=== PATIENT | male | born 1945 | race Caucasian/White ===

== ENCOUNTER 2019-03-13 09:04 | Inpatient (IN) | payer MEDICARE ==
[~2019-03-13] VITALS: Ht 175.3 cm; Wt 89.5 kg
[2019-03-13] MEDS ORDERED: ketorolac tromethamine 15mg/ml inj. IV ONE (09:45)
[2019-03-13] MEDS ORDERED: clindamycin 600mg/D5W 50ml 50 ML IV ONE (09:45)
[2019-03-13] MEDS ORDERED: tetanus & diphtheria toxoid (Td) vaccine 0.5ml IMVAC ONE (09:45)
[2019-03-13 09:59] LABS: BASOPHILS % (AUTO) 0.2 % (0-1); EOSINOPHILS # (AUTO) 0.2 X10'3 (0-0.9); EOSINOPHILS % (AUTO) 1.4 % (0-6); HEMATOCRIT 46.3 % (42.0-52.0); HEMOGLOBIN 15.6 g/dl (14.0-17.9); LYMPHOCYTES # (AUTO) 0.9 X10'3 (1.1-4.8); LYMPHOCYTES % (AUTO) 6.8 % (21-51); MEAN CORPUSCULAR HEMOGLOBIN 30.2 PG (27.0-31.0); MEAN CORPUSCULAR HGB CONC 33.7 g/dL (33.0-36.5); MEAN CORPUSCULAR VOLUME 89.7 FL (78-98); MEAN PLATELET VOLUME 10.5 FL (7.4-10.4); MONOCYTES # (AUTO) 1.1 X10'3 (0-0.9); MONOCYTES % (AUTO) 8.3 % (2-12); NEUTROPHILS # (AUTO) 11.2 X10'3 (1.8-7.7); NEUTROPHILS % (AUTO) 83.3 % (42-75); PLATELET COUNT 143 X10'3 (140-440); RED BLOOD COUNT 5.16 X10'6 (4.70-6.10); RED CELL DISTRIBUTION WIDTH 13.9 % (11.5-14.5); WHITE BLOOD COUNT 13.4 X10'3 (4.5-11.0)
[2019-03-13 10:07] LABS: ALANINE AMINOTRANSFERASE 47 U/L (12-78); ALKALINE PHOSPHATASE 57 IU/L (46-116); ANION GAP 11 (8-16); ASPARTATE AMINO TRANSFERASE 22 U/L (10-37); BILIRUBIN,TOTAL 1.3 MG/DL (0.1-1.0); BLOOD UREA NITROGEN 16 MG/DL (7-18); BUN/CREATININE RATIO 14.8 (5.4-32.0); C-REACTIVE PROTEIN 15.16 MG/DL (0.0-0.5); CHLORIDE 103 MMOL/L (99-107); CREATININE 1.08 MG/DL (0.60-1.10); GLUCOSE 123 MG/DL (70-104); POTASSIUM 3.8 MMOL/L (3.5-5.1); SODIUM 139 MMOL/L (135-145); TOTAL CARBON DIOXIDE 25.4 MMOL/L (24-32); TOTAL PROTEIN 8.2 G/DL (6.4-8.2); eGFR 67 ML/MIN
[2019-03-13 10:12] LABS: CALCIUM 9.3 MG/DL (8.5-10.1)
[2019-03-13] MEDS ORDERED: TETanus/Pertussis (Acell)/Diphther VAC/PF (Tdap-Adult) 0.5ml syringe IMVAC ONE (10:15)
[2019-03-13 10:18] LABS: LARGE PLATELETS FEW; PLATELET ESTIMATE NORMAL
[2019-03-13] MEDS ORDERED: ampicillin/sulbac 3gm/NS 100ml 100 ML IV ONE (10:30)
[2019-03-13] MEDS ORDERED: morphine 2 MG/ML inj. syringe IV PRN ×2 (10:45)
[2019-03-13] MEDS ORDERED: ondansetron/PF 4mg/2ml inj IV PRN (10:45)
[2019-03-13] MEDS ORDERED: mag hydrox/Alum hydrox/simeth 30ml oral suspension PO PRN (10:45)
[2019-03-13] MEDS ORDERED: magnesium hydroxide 30ml (MOM) UD suspension PO PRN (10:45)
[2019-03-13] MEDS ORDERED: acetaminophen 325mg tablet PO PRN ×2 (10:45)
[2019-03-13] MEDS ORDERED: HYDROcodone/acetaminophen 5mg/325mg tablet PO PRN (10:45)
--- NOTE | 2019-03-13 11:30 | NUR ---
PATIENT IS GOING TO BE ADMITTED INPATIENT FOR ANTIBIOTIC THERAPY. PATIENT WAS NOT PREPARED TO BE ADMITTED AND NEEDS TO GO HOME TO SECURE HIS HOUSE AND PETS. IV SALINE LOCK REMAINS INTACT AND SECURED WITH [employer] DRESSING. LEFT FROM ER, AMBULATORY IN GOOD CONDITION AND WILL BE RETURNING TO THE ER AFTER HE TAKES CARE OF MATTERS AT HOME.
--- NOTE | 2019-03-13 14:24 | NUR ---
PT CAME TO THE FLOOR AT 1420. HE IS IN HIS STREET CLOTHES AND HAS NOT BROUGHT HIS MED LIST WITH HIM.
--- NOTE | 2019-03-13 14:32 | NUR ---
PT STATES HE TAKE AMLODIPINE BUT HE DOES NOT KNOW HOW MUCH. HE TAKES ANOTHER MED ALSO BUT DOES NOT KNOW THE NAME. WILL NOTIFY HOSPITALIST
--- NOTE | 2019-03-13 14:45 | NUR ---
PAGED HOSPITALIST WITH INFORMATION REGARDING PT'S HOME MEDS
--- NOTE | 2019-03-13 14:55 | NUR ---
TOOK PHOTO OF PT'S RIGHT ARM AND LABELED IT
[2019-03-13 14:57] VITALS: BP 136/73
[2019-03-13 18:00] VITALS: BP 131/69
[2019-03-13] MEDS: ampicillin/sulbac 3gm/NS 100ml 100 ML IV SCH (19:57)
[2019-03-14] VITALS: BP 111/71
[2019-03-14] MEDS: ampicillin/sulbac 3gm/NS 100ml 100 ML IV SCH ×2 (02:44→07:00)
[2019-03-14 05:49] LABS: BASOPHILS % (AUTO) 0.3 % (0-1); EOSINOPHILS # (AUTO) 0.5 X10'3 (0-0.9); EOSINOPHILS % (AUTO) 4.8 % (0-6); HEMATOCRIT 40.8 % (42.0-52.0); HEMOGLOBIN 13.9 g/dl (14.0-17.9); LYMPHOCYTES # (AUTO) 0.9 X10'3 (1.1-4.8); LYMPHOCYTES % (AUTO) 9.4 % (21-51); MEAN CORPUSCULAR HEMOGLOBIN 30.7 PG (27.0-31.0); MEAN CORPUSCULAR HGB CONC 34.2 g/dL (33.0-36.5); MEAN CORPUSCULAR VOLUME 89.7 FL (78-98); MEAN PLATELET VOLUME 11.1 FL (7.4-10.4); MONOCYTES % (AUTO) 9.7 % (2-12); NEUTROPHILS # (AUTO) 7.5 X10'3 (1.8-7.7); NEUTROPHILS % (AUTO) 75.8 % (42-75); PLATELET COUNT 127 X10'3 (140-440); RED BLOOD COUNT 4.54 X10'6 (4.70-6.10); RED CELL DISTRIBUTION WIDTH 13.1 % (11.5-14.5)
[2019-03-14 06:10] LABS: ALBUMIN 3.3 G/DL (3.4-5.0); ANION GAP 10 (8-16); BLOOD UREA NITROGEN 18 MG/DL (7-18); BUN/CREATININE RATIO 17.1 (5.4-32.0); CALCIUM 8.5 MG/DL (8.5-10.1); CHLORIDE 105 MMOL/L (99-107); CREATININE 1.05 MG/DL (0.60-1.10); GLUCOSE 115 MG/DL (70-104); POTASSIUM 3.7 MMOL/L (3.5-5.1); SODIUM 140 MMOL/L (135-145); TOTAL CARBON DIOXIDE 25.2 MMOL/L (24-32); eGFR 69 ML/MIN
--- NOTE | 2019-03-14 06:16 | NUR ---
report given to ALVINA Corrales
--- NOTE | 2019-03-14 06:34 | NUR ---
Patient in room [facility]. I have received report from Jose TINSLEY and had the opportunity to ask questions and assume patient care.
[2019-03-14 08:00] VITALS: BP 113/56
[2019-03-14] MEDS ORDERED: enoxaparin 40mg/0.4ml syringe SUBCUT SCH (08:00)
[2019-03-14 11:30] VITALS: BP 119/58
[2019-03-14] MEDS ORDERED: AMOX-580 PO (13:44)
--- NOTE | 2019-03-14 14:57 | NUR ---
Malnutrition/"Pt/family ed" consults: Pt admit w/ R hand cat bite and cellulitis. Pt only hx HTN PO 100% regular diet meeting healing needs w/ cellulitis. Pt has normal strength, no significant edema, unsure of wt loss hx though current healthy wt. At this time pt does not meet minimum malnutrition criteria and is not appropriate for further nutrition intervention. Will monitor for additional protein needs if PO declines this admit. Addendum: 03/14/19 at [address] Amended: Links added.
--- NOTE | 2019-03-14 16:25 | NUR ---
Patient seen by Dr Freeman is for Discharge. All instructions given to patient . Wound to hand pictured. patient DC home with prescription for augumentin @ 1500hrs, in stable condition. via private car.
== END 2019-03-14 15:33 | disposition home or self-care (01) | DRG 603 ==
LOC: ER 09:06 → ED HOLD 10:43 → SUR 3N 14:45
PROVIDERS: ADMIT Internal Medicine; ATTEND Internal Medicine
PROC: 3E0234Z Introduction of Serum, Toxoid and Vaccine into Muscle, Percutaneous Approach (ICD-10-PCS; principal; 2019-03-13)
DX: L03.113 Cellulitis of right upper limb (principal); I10 Essential (primary) hypertension; Z83.3 Family history of diabetes mellitus; Z87.891 Personal history of nicotine dependence; W55.01XA Bitten by cat, initial encounter; Y93.89 Activity, other specified; Y92.89 Other specified places as the place of occurrence of the external cause; Y99.8 Other external cause status; Z23 Encounter for immunization
CPT/HCPCS: 36415; 71046; 73100; 80048; 80053; 83605; 85025; 85610; 86140; 87081; 90715; 93005; 96365; 96375; 99285; G0378; J0295; J1650; J1885; J3490